=== PATIENT | male | born 1960 | race Two or more races ===

== ENCOUNTER 2017-05-07 16:18 | Emergency (ER) | payer OTHER ==
[2017-05-07 16:28] VITALS: BP 115/76; PULSE 79; RESP 18; TEMP 98.2; O2SAT 98
[2017-05-07] MEDS ORDERED: diphenhydrAMINE 25 MG CAP PO ONE (16:43)
[2017-05-07] MEDS ORDERED: predniSONE 20 MG TAB PO ONE (16:43)
--- NOTE | 2017-05-07 16:45 | EDPHY ---
H & P Time Seen by Provider: 05/07/17 16:31 HPI/ROS: CHIEF COMPLAINT: Itchy rash HISTORY OF PRESENT ILLNESS: 56-year-old male presents with a 2 week history of an itchy rash. He developed a rash on his lower extremities 2 weeks ago. The rash is itchy and involves both legs. He also has a few itchy areas on his arms. He has been placing alcohol on the itchy areas and has been scratching the areas. No over the counter medications tried. No shortness of breath, facial swelling, dizziness or other allergic symptoms. No prior similar symptoms. REVIEW OF SYSTEMS: Constitutional: No fever, no chills Eyes: No visual changes ENT: No sore throat Respiratory: No cough, no shortness of breath Cardiac: No chest pain Gastrointestinal: No nausea, no vomiting, no abdominal pain Genitourinary: no dysuria Neurological: No headache, no weakness Psychiatric: No depression Past Medical/Surgical History: Hypertension Alcoholism Social History: Smoking Status: Heavy smoker Physical Exam: General Appearance: Alert, pleasant Eyes: Pupils equal and round, no conjunctival pallor or injection, no scleral icterus ENT, Mouth: Mucous membranes moist Neck: Normal inspection Respiratory: Lungs are clear to auscultation Cardiovascular: Regular rate and rhythm Gastrointestinal: Abdomen is soft and nontender Neurological: A&O, nonfocal, normal gait Skin: multiple excoriated areas on the lower extremities, hives present, no tenderness or warmth. Extremities: no swelling Psychiatric: Mood and affect normal Constitutional: Initial Vital Signs Temperature (C) 36.8 C 05/07/17 16:25 Heart Rate 79 05/07/17 16:25 Respiratory Rate 18 05/07/17 16:25 Blood Pressure 115/76 05/07/17 16:25 O2 Sat (%) 98 05/07/17 16:25 O2 Delivery Mode Room Air Allergies/Adverse Reactions: Penicillins Allergy (Mild, Verified 05/07/17 16:24) Rash Home Medications: Medication Instructions Recorded Lisinopril [Zestril 40 mg (*)] 40 mg PO 05/07/17 Methadone HCl [Methadone 5 mg (*)] 5 mg PO 05/07/17 predniSONE 1 tab PO DAILY #15 tab 05/07/17 Medical Decision Making ED Course/Re-evaluation: This pt presents with hives, exacerbated by alcohol placed on now-open wounds. No superinfection. Benadryl 25 mg and prednisone 60 mg orally given. Differential Diagnosis: Differential diagnosis includes though it is not limited to laryngeal edema, bronchospasm, hypotension, angioedema. - Data Points Medications Given: Discontinued Medications Diphenhydramine HCl (Benadryl) 25 mg PO EDNOW ONE Stop: 05/07/17 16:44 Last Admin: 05/07/17 16:52 Dose: 25 mg Prednisone (Prednisone) 60 mg PO EDNOW ONE Stop: 05/07/17 16:44 Last Admin: 05/07/17 16:53 Dose: 60 mg Departure - Departure Disposition: Home, Routine, Self-Care Clinical Impression: Urticaria Condition: Good Instructions: Urticaria (ED) Additional Instructions: Take Claritin in the morning and Benadryl at night while the rash persists. Do not put alcohol on your skin. Return for worsening symptoms or any concerns. Referrals: [facility] [Other] - 5-7 days, if not improved Prescriptions: predniSONE 1 tab PO DAILY #15 tab
== END 2017-05-07 17:03 | disposition home or self-care (01) ==
DX: L50.9 Urticaria, unspecified (principal); I10 Essential (primary) hypertension; F17.200 Nicotine dependence, unspecified, uncomplicated

== ENCOUNTER 2017-05-11 09:17 | Emergency (ER) | payer OTHER ==
[2017-05-11] MEDS ORDERED: ONDANSETRON 4 MG/2 ML VIAL IVP ONE (09:45)
[2017-05-11 10:10] VITALS: RESP 15
[2017-05-11] MEDS ORDERED: LORazepam 2 MG/ML INJ IVP ONE (10:10)
[2017-05-11] MEDS ORDERED: NS 1,000 ML IV ONE (10:11)
[2017-05-11 10:16] LABS: % IMMATURE GRANULYOCYTES 1.5 % (0.0-1.1); ABSOLUTE IMMATURE GRANULOCYTES 0.11 10^3/uL (0.00-0.10); ADD DIFF? NO; ADD MORPH? NO; ADD SCAN? NO; ATYPICAL LYMPHOCYTE FLAG 10 (0-99); FRAGMENT RBC FLAG 0 (0-99); HEMATOCRIT 40.7 % (40.0-51.0); HEMOGLOBIN 14.1 g/dL (13.7-17.5); LEFT SHIFT FLG 10 (0-99); LIPEMIA HEMOLYSIS FLAG 90 (0-99); MEAN CELL HEMOGLOBIN 34.2 pg (27.9-34.1); MEAN CELL HEMOGLOBIN CONCENTR. 34.6 g/dL (32.4-36.7); MEAN CELL VOLUME 98.8 fL (81.5-99.8); MEAN PLATELET VOLUME 9.7 fL (8.7-11.7); PLATELET CLUMPS FLAG 0 (0-99); PLATELET COUNT 190 10^3/uL (150-400); RED BLOOD CELL COUNT 4.12 10^6/uL (4.40-6.38); RED CELL DISTRIBUTION WIDTH 12.7 % (11.5-15.2)
--- NOTE | 2017-05-11 10:16 | EDPHY ---
H & P Time Seen by Provider: 05/11/17 09:34 HPI/ROS: HPI Alcohol abuse, seizure. 56-year-old male on foot. He has a history of alcohol abuse. He drinks more than 20 beers a day. He states that his last drink was on Monday. He also has a history of narcotic abuse. He has been on methadone for years. He reports he also stopped taking methadone last Monday. He reports that he did this because he wants to quit. He reports a friend of his a small amount of methadone that he was given last Monday. He denies any alcohol intake or substance abuse since that time. He reports that at 8:39 a.m. this morning he thinks he had a seizure. He has had alcohol withdrawal seizures in the past. He states that his muscles in his arms legs and back feels sore. This is typical of his previous alcohol withdrawal seizures. At this time he denies any other complaints. No headache. No focal weakness or altered sensation in his extremities. ROS: Constitutional: No fever, no chills. No weakness. Eyes: No discharge. No changes in vision. ENT: No sore throat. No nasal congestion or rhinorrhea. Respiratory: No cough. No shortness of breath. Cardiac: No chest pain, no palpitations. Gastrointestinal: No abdominal pain, no vomiting, no diarrhea. Genitourinary: No hematuria. No dysuria or increased frequency with urination. Musculoskeletal: N as above. Skin: No rashes. Neurological: No headache. No focal weakness or altered sensation. Past medical history: Pancreatitis, hepatitis-B, alcohol abuse, narcotic abuse , hypertension. Social history: As above. Nonsmoker. Here by himself. Physical Exam: General Appearance: Alert, no distress. He appears relaxed at this time. This patient is responding to questions appropriately and in full sentences. This patient appears well-hydrated and well-nourished. Eyes: Pupils equal and round no pallor or injection. No lid edema, erythema or injection. No nystagmus. ENT, Mouth: Mucous membranes are moist. The pharyngeal tissues are unremarkable. No edema or swelling. No asymmetry suggestive of abscess. No erythema or exudates. No tongue lacerations or abrasions. Respiratory: There are no retractions, lungs are clear to auscultation with good air movement bilaterally. Cardiovascular: Regular rate and rhythm. No murmur. Gastrointestinal: Abdomen is soft and nontender, no masses, bowel sounds normal. No focal tenderness at McBurney's point. No Xiao sign. Neurological: Motor sensory function is grossly intact. Cranial nerves are normal. Gait is normal. Mild resting tremor. Skin: Warm and dry, no rashes. Musculoskeletal: Neck is supple and nontender. Extremities are symmetrical. All joints range without pain or impingement. Psychiatric: No agitation. No depression. Database: EKG: Imaging: Procedures: Emergency department course: Vital signs reviewed on my evaluation and are normal. Narrow complex sinus rhythm ventricular rate of 82. Blood pressure 137/72. IV was placed from triage. He was given 1 L of IV normal saline. He was given 1 mg of IV Ativan. I discussed sending him to detox at the [facility]. He does not want to do this. 10:40 a.m., patient re-evaluated. Resting comfortably at this time. Repeat neurologic Assessment is nonfocal. Results of his blood work discussed. He states that he feels better. He again declines detox at the [facility]. He is requesting discharge. Follow-up and return to emergency department precautions reviewed with him. All of his questions were answered. He was discharged in good condition. Differential Diagnosis: The differential diagnosis on this patient includes but is not limited to alcohol withdrawal seizure, history of alcohol abuse. Hypoglycemia, hyponatremia, meningitis, encephalitis, CVA unlikely. This represents a partial list of diagnoses considered. These considerations are based on history , physical exam, past history, reassessment and diagnostic testing. Smoking Status: Heavy smoker Constitutional: Initial Vital Signs Temperature (C) 37.2 C 05/11/17 09:26 Heart Rate 109 H 05/11/17 09:26 Respiratory Rate 22 H 05/11/17 09:26 Blood Pressure 148/100 H 05/11/17 09:26 O2 Sat (%) 99 05/11/17 09:26 O2 Delivery Mode Room Air Allergies/Adverse Reactions: Penicillins Allergy (Mild, Verified 05/11/17 09:24) Rash Home Medications: Medication Instructions Recorded Lisinopril [Zestril 40 mg (*)] 40 mg PO 05/07/17 Methadone HCl [Methadone 5 mg (*)] 5 mg PO 05/07/17 Medical Decision Making - Data Points Medications Given: Discontinued Medications Ondansetron HCl (Zofran) 4 mg IVP EDNOW ONE Stop: 05/11/17 09:46 Last Admin: 05/11/17 09:48 Dose: 4 mg Departure - Departure Disposition: Home, Routine, Self-Care Clinical Impression: Alcohol abuse, Alcohol withdrawal seizure Condition: Good Instructions: Abuse of Alcohol (ED), Alcohol Withdrawal (ED) Additional Instructions: Read and follow provided instructions. Follow-up with your primary care physician, Dr. Barrett Marrero, the [facility] tomorrow. Return to the emergency department for seizure, confusion, fever, headache, nausea or vomiting or other serious concerns. Referrals: Barrett Marrero MD [Primary Care Provider] - As per Instructions
[2017-05-11 10:21] LABS: ANION GAP 15 mEq/L (8-16); CALCIUM 10.3 mg/dL (8.5-10.4); CARBON DIOXIDE 19 mEq/l (22-31); CHLORIDE 102 mEq/L (97-110); CREATININE 0.9 mg/dL (0.7-1.3); GLOMERULAR FILTRATION RATE > 60; GLUCOSE 82 mg/dL (70-100); POTASSIUM 4.1 mEq/L (3.5-5.2); SODIUM 136 mEq/L (134-144)
[2017-05-11 11:26] VITALS: BP 148/82; PULSE 78; TEMP 98.2; O2SAT 96
== END 2017-05-11 11:24 | disposition home or self-care (01) ==
DX: R56.9 Unspecified convulsions (principal); I10 Essential (primary) hypertension; F17.200 Nicotine dependence, unspecified, uncomplicated; F10.239 Alcohol dependence with withdrawal, unspecified; E86.9 Volume depletion, unspecified
CPT/HCPCS: 96374; J2060; J2405